=== PATIENT | male | born 1970 | race Caucasian/White ===

== ENCOUNTER 2023-01-02 03:47 | Emergency (ER) | payer BC ==
[2023-01-02 04:11] VITALS: BMI 28.0
[2023-01-02] MEDS ORDERED: LIDOCAINE 5% TOPICAL PATCH TP ONE (04:34)
[2023-01-02] MEDS ORDERED: METHOCARBAMOL 500 MG TABLET PO ONE (04:34)
[2023-01-02] MEDS ORDERED: ACETAMINOPHEN 500 MG TABLET (FP) PO ONE (04:36)
[2023-01-02] MEDS ORDERED: METHOCARBAMOL 500 MG TABLET ONE (05:18)
[2023-01-02] MEDS ORDERED: ACETAMINOPHEN 325 MG TABLET (FP) ONE (05:19)
[2023-01-02] MEDS ORDERED: LIDOCAINE 5% TOPICAL PATCH ONE (05:19)
[2023-01-02 06:22] VITALS: BP 168/99; PULSE 64; RESP 20; TEMP 98.1
[2023-01-02] MEDS ORDERED: amLODIPine BESYLATE 5 MG TABLET (FP) PO ONE (06:24)
[2023-01-02] MEDS ORDERED: amLODIPine BESYLATE 5 MG TABLET (FP) ONE (06:27)
[2023-01-02] MEDS ORDERED: LIDOCAINE PATCH REMOVAL MC ONE (17:00)
== END 2023-01-02 06:50 | disposition home or self-care (01) ==
LOC: JER 03:47
DX: I10 Essential (primary) hypertension (principal); M54.2 Cervicalgia; R20.2 Paresthesia of skin; M54.12 Radiculopathy, cervical region; M79.602 Pain in left arm
CPT/HCPCS: 93005; 93010; 99283-25